=== PATIENT | male | born 1950 | race Caucasian/White ===

== ENCOUNTER 2024-02-26 08:59 | Outpatient (CLI) | payer MEDICARE, OTHER ==
[~2024-02-26] VITALS: Ht 185.4 cm; Wt 106.6 kg
[~2024-02-26 08:59] MED LIST: ASPI-1071 PO; CELE-193 PO; EZET-80 PO; FLUT1DIS4 INH; TRAM50TA2 PO; WALKERFR
[2024-02-26] MEDS: albuterol 2.5 MG/3 ML nebule NEB PRN (09:34)
[2024-02-26 09:36] VITALS: PULSE 70; RESP 16; O2SAT 95
== END 2024-02-26 23:59 | disposition home or self-care (01) ==
LOC: RT 08:59
PROVIDERS: ATTEND Family Medicine
DX: J44.1 Chronic obstructive pulmonary disease with (acute) exacerbation (principal)
CPT/HCPCS: 94060; 94760